=== PATIENT | female | born 1955 | race Caucasian/White ===

== ENCOUNTER 2017-04-22 08:36 | Day surgery (SDC) | payer BC ==
[2017-04-18 16:14] VITALS: BMI 32.6
[2017-04-22] MEDS ORDERED: ceFAZolin SODIUM 1 GM VIAL ONE (09:28)
[2017-04-22] MEDS ORDERED: ONDANSETRON 4 MG/2 ML VIAL IVPUSH PRN ×2 (10:31→12:52)
[2017-04-22] MEDS ORDERED: PROMETHAZINE HCL 25 MG/1 ML VIAL IVPUSH PRN ×2 (10:31→12:52)
[2017-04-22] MEDS ORDERED: oxyCODONE HCL 5 MG TABLET PO PRN ×2 (10:31→12:52)
[2017-04-22] MEDS ORDERED: LACTATED RINGERS SOLUTION 1,000 ML IV SCH ×2 (10:45→13:00)
[2017-04-22] MEDS ORDERED: MIDAZOLAM HCL 2 MG/2 ML SINGLE DOSE VIAL ONE ×3 (11:23→12:34)
--- NOTE | 2017-04-22 12:10 | HP ---
History & Physical Update - History History: No Change - Physical Physical: No Change - Assessment Assessment: No Change - Plan Plan: No Change
[2017-04-22] MEDS ORDERED: PROPOFOL 20 ML ONE (12:12)
[2017-04-22] MEDS ORDERED: LIDOCAINE 1%/EPI 1:100000 (20 ML MULTI DOSE VIAL) ONE (12:19)
[2017-04-22] MEDS ORDERED: ceFAZolin SODIUM 1 GM VIAL IVPB ONE (12:25)
[2017-04-22] MEDS ORDERED: LIDOCAINE 1%/EPI 1:100000 (20 ML MULTI DOSE VIAL) IJ ONE (12:29)
[2017-04-22 14:05] VITALS: TEMP 97.8
[2017-04-22 16:48] VITALS: BP 102/65; PULSE 73
--- NOTE | 2017-04-22 18:00 | OP ---
DATE OF OPERATION: 04/22/2017 PREOPERATIVE DIAGNOSIS: Cervical intraepithelial neoplasia three, and history of post menopausal vaginal bleeding. PROCEDURE: Cone biopsy of the cervix and dilation and curettage. SURGEON: Sandra Richard M.D. ANESTHESIA: MAC and local. ESTIMATED BLOOD LOSS: 10 mL. COMPLICATIONS: None. INDICATION: This is a 61-year-old 2 para 2 with history of CARMEN II. Pap smear on December 10, 2016, showed ASCUS, high-risk HPV positive. On March 27, 2017, ECC showed CARMEN II to III, cervical biopsy at 6, 9, 1, and 4 were negative. Patient had history of previous cone biopsy in 2011. Patient reports that she had history of menopause at age 58 and then after that had bleeding for 4 days one year later. She denied history of hormone replacement therapy. The plan was for her to have a D&C; however, that could not be done due to other medical issues. Patient was counseled regarding surgical management. Risks, benefits, and alternatives were discussed with the patient. All questions were answered. Informed consent was signed. FINDINGS: Exam under anesthesia, uterus approximately 6 to 8 weeks' size, cervix no gross lesions, vagina no lesions. Overall the vagina and cervix are markedly atrophic. Upon 5% acetic acid, there were no acetowhite epithelial changes. PROCEDURE: The patient was taken to the operating room, placed in dorsal supine position. Moderate sedation was achieved. She was placed in the dorsal lithotomy position and Stephan stirrups, and draped. A speculum was placed in the vagina, 5% acetic acid was applied to the entire cervix and the vagina, and a colposcopy was performed with the above-noted findings. At this point, 10 mL of 1% lidocaine with epinephrine was injected into the cervical stroma at 3, 6, 9 and 12 o'clock. After adequate anesthesia had been achieved, using a loop electrode, 2.0 x 0.8 cm loop, an anterior pass and a posterior pass was performed of the cervix. Using the 1.0 x 1.0 cm loop electrode, a top hat was performed of the endocervix. An endocervical curettage was then performed, and the cervix was gently dilated, and an endometrial curettage was performed as well. Endometrial curettage provided minimal tissue. The endometrial lining felt very smooth. All instruments were removed from the patient's vagina. Using the rollerball electrocautery, the entire LEEP bed was cauterized extensively with excellent hemostasis seen, and for added assurance a Monsel solution was applied. All instruments were removed from the patient's vagina. Sponge, needle, instrument counts were correct x2. Sandra Richard M.D. [id number]
--- NOTE | 2017-04-25 15:19 | PATH ---
Surgical Pathology Report Patient Name: CHRISTY PADILLA [facility], [place]. Rec. #: [id number] /Age/Gender: 1955 (Age: 61) / F Account: [id number] Location: [facility] SURGICAL Taken: 04/22/2017 Received: 04/22/2017 Reported: 04/25/2017 Physicians: Sandra Richard MD Specimen(s) Received A: ANTERIOR CERVICAL CONE B: POSTERIOR CERVICAL CONE C: TOP HAT CERVICAL CONE D: ENDOMETRIAL CURETTINGS E: ENDOCERVICAL CURETTINGS Clinical History Cervical dysplasia Final Diagnosis A. CERVIX, ANTERIOR, EXCISION: CERVICAL SQUAMOUS AND ENDOCERVICAL MUCOSA WITH ACUTE AND CHRONIC INFLAMMATION, FOCAL SQUAMOUS AND TUBAL METAPLASIA, AND CHANGES OF PRIOR PROCEDURE. TRANSFORMATION ZONE PRESENT. NO DYSPLASIA OR CARCINOMA IDENTIFIED. B. CERVIX, POSTERIOR, EXCISION: CERVICAL SQUAMOUS AND ENDOCERVICAL MUCOSA WITH FOCAL HIGH GRADE SQUAMOUS INTRAEPITHELIAL LESION (CERVICAL INTRAEPITHELIAL NEOPLASIA 2/CARMEN 2) IN A BACKGROUND OF LOW GRADE SQUAMOUS INTRAEPITHELIAL LESION. DYSPLASIA EXTENDS TO INKED SURGICAL MARGIN. TRANSFORMATION ZONE PRESENT. C. CERVIX, TOP HAT, EXCISION: ENDOCERVICAL MUCOSA WITH FOCAL GLANDULAR DYSPLASIA IN A BACKGROUND OF MILD CHRONIC INFLAMMATION AND FOCAL SQUAMOUS METAPLASIA. DYSPLASIA FOCALLY EXTENDS TO INKED SURGICAL MARGINS. SEE COMMENT. D. ENDOMETRIAL CURETTINGS, DILATATION AND CURETTAGE: ATROPHIC ENDOMETRIUM AND BENIGN ENDOCERVICAL TISSUE E. ENDOCERVICAL CURETTINGS, DILATATION AND CURETTAGE: SCANT FRAGMENTS OF BENIGN ENDOCERVICAL TISSUE. Comment: Immunohistochemical stains performed at [place], [place] ([id number] and [id number]) and interpreted at [facility] show the p16 shows strong patchy positive staining within the atypical glands. Proliferative marker, ki-67 was utilized to evaluate this case. Electronically Signed Nia Call M.D. Gross Description A. Received in formalin labeled "anterior cervix," is a 2.5 x 1.0 x 0.6 cm crescent shaped portion of cervix. The specimen is partially surfaced by a blackmon-pink, shiny and glistening mucosa. The specimen is inked blue, serially sectioned and entirely submitted in 3 cassettes. B. Received in formalin labeled "posterior cervix," is a 2.0 x 0.9 x 0.4 cm crescent shaped portion of cervix. The specimen is partially surfaced by a blackmon-pink, shiny and glistening mucosa. The specimen is inked blue, serially sectioned and entirely and sequentially submitted in 2 cassettes. C. Received in formalin labeled "top hat cervix," is a 3.0 x 0.7 x 0.4 cm irregular, unoriented portion of soft tissue, consistent with a portion of cervix. The specimen is inked blue, serially sectioned and entirely and sequentially submitted in 3 cassettes. D. Received in formalin labeled "endometrial curettage," is a 1.0 x 0.7 x 0.3 cm aggregate of blackmon soft tissue fragments admixed with mucus. The formalin is filtered and the specimen is entirely submitted in one cassette. E. Received in formalin labeled "endocervical curettings," is a 0.6 x 0.5 x 0.2 cm aggregate of blackmon-brown soft tissue fragments. The formalin is filtered and the specimen is entirely submitted in one cassette. 04/22/2017 [facility]04/22/2017
== END 2017-04-22 15:30 | disposition home or self-care (01) ==
LOC: JASU-SURG 08:36
PROVIDERS: ATTEND Obstetrics & Gynecology Gynecologic Oncology
PROC: 0UDB7ZX Extraction of Endometrium, Via Natural or Artificial Opening, Diagnostic (ICD-10-PCS; 2017-04-22)
PROC: 0UDB7ZX Extraction of Endometrium, Via Natural or Artificial Opening, Diagnostic (ICD-10-PCS; principal; 2017-04-22 10:00)
PROC: 0UBC7ZX Excision of Cervix, Via Natural or Artificial Opening, Diagnostic (ICD-10-PCS; 2017-04-22 10:00)
DX: N87.1 Moderate cervical dysplasia (principal); R87.810 Cervical high risk human papillomavirus (HPV) DNA test positive
CPT/HCPCS: 86850; 86900; 86901; 88305-TC; 88307-TC; 94760

== ENCOUNTER 2017-08-20 05:09 | Day surgery (SDC) | payer BC ==
[2017-08-18 13:16] VITALS: BMI 30.4
--- NOTE | 2017-08-20 09:24 | HP ---
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) Cardiovascular: Yes: HTN, Hyperlipdemia Gastrointestinal: Yes: Other (Hepatitis B carrier) Hepatobiliary: Yes: Hepatitis B ...LMP: 04/24/11 Infectious Disease: Yes: Other (Hepatitis B carrier) - Current Medications Current Medications: Home Medications Medication Instructions Recorded Cholecalciferol (Vitamin D3) 5,000 unit PO DAILY tab 03/25/16 [Vitamin D3 -] Docusate Sodium [Colace -] 100 mg PO DAILY capsule 03/25/16 Multivitamins [Multivit ([facility] 1 tab PO DAILY tab 03/25/16 Formulary)] Ascorbate Calcium [Vitamin C] 500 mg PO DAILY 04/18/17 Benazepril HCl [Lotensin] 20 mg PO DAILY 04/18/17 Hydrocodone/Acetaminophen [[place] 1 each PO Q6H PRN #40 tablet MDD 4 08/20/17 5-325 Tablet] Satellite Physical Exam - Physical Examination General Appearance: Well Nourished, Well Developed, Alert & Oriented x3 ENT: Clear Lung: Normal air movement Heart: Regular rate & rhythm Extremities: Other (left hand- + ttp over basal joint, decr rom, nvi xrays show grade 4 basal joint OA) Neurological: Intact, Alert, Oriented Satellite Impression/Plan - Impression/Plan Impression: left basal joint OA Operative Procedure: left basal joint arthroplasty Date to be Performed: 08/20/17
[2017-08-20] MEDS ORDERED: ONDANSETRON 4 MG/2 ML VIAL IVPUSH PRN (11:04)
[2017-08-20] MEDS ORDERED: LACTATED RINGERS SOLUTION 1,000 ML IV SCH (11:15)
[2017-08-20] MEDS ORDERED: ROPIVACAINE HCL 0.5% 30ML VIAL ONE (11:32)
[2017-08-20] MEDS ORDERED: DEXAMETHASONE SOD PHOSPHATE/PF 10 MG/ML SDV ONE (11:32)
[2017-08-20] MEDS ORDERED: MIDAZOLAM HCL 2 MG/2 ML SINGLE DOSE VIAL ONE ×2 (11:33)
[2017-08-20] MEDS ORDERED: ceFAZolin SODIUM 1 GM VIAL IVPB ONE (13:44)
[2017-08-20] MEDS ORDERED: LIDOCAINE HCL 1%, 10 MG/ML (20ML VIAL) ONE (13:53)
[2017-08-20] MEDS ORDERED: BUPIVACAINE HCL/PF 0.5% (5MG/ML) 10 ML VIAL ONE (13:53)
[2017-08-20] MEDS ORDERED: BUPIVACAINE HCL/PF 0.5% (5MG/ML) 10 ML VIAL IJ ONE ×2 (13:56)
[2017-08-20] MEDS ORDERED: LIDOCAINE HCL 1%, 10 MG/ML (50 mL VIAL) IJ ONE ×2 (13:56)
--- NOTE | 2017-08-20 15:14 | OP ---
Operative Note - Note: Operative Date: 08/20/17 ([facility]) Pre-Operative Diagnosis: left basal joint OA Operation: left basal joint arthroplasty, LRTI, tendon harvest Post-Operative Diagnosis: Same as Pre-op Surgeon: Jeff Samuel Shipping And Receiving Supervisor: Raymond Khan Anesthesiologist/SOFTWARE QUALITY SPECIALIST: Vinayak France Anesthesia: General, Local Specimens Removed: trapezium Estimated Blood Loss (mls): 0 (tourniquet) Operative Report Dictated: Yes
[2017-08-20 17:15] VITALS: TEMP 98.1
--- NOTE | 2017-08-20 18:51 | SPEC ---
DATE OF OPERATION: 08/20/2017 PREOPERATIVE DIAGNOSIS: Left basal joint arthritis. POSTOPERATIVE DIAGNOSIS: Left basal joint arthritis. PROCEDURE: PREOPERATIVE DIAGNOSIS: Left basal joint arthroplasty, trapezium excision, flexor carpi radialis tendon harvest, and ligament reconstruction with percutaneous first to second metacarpal. SURGEON: Jeff Samuel M.D. GOLF COURSE MECHANIC: Brown Lawrence NURSE TUMBLING MACHINE OPERATOR: , SURGICAL SCHEDULER ANESTHESIA: Left interscalene block with local injection of 12 mL 0.5% Marcaine, 1% lidocaine mix. DRAINS: None. COMPLICATIONS: None. SPECIMEN: Trapezium bone left wrist. BLOOD LOSS: None. BLOOD GIVEN: None. FLUID REPLACEMENT: 700 mL. INDICATION: This patient is a 61-year-old female with preoperative diagnosis of severe left basal joint arthritis. After understanding the potential risks, complications, alternatives, benefits to surgery versus nonsurgical treatment, the patient elected to pursue this procedure. DESCRIPTION OF PROCEDURE: Patient brought to operating room, peripheral IV placed, IV sedation given, 1 g of IV Ancef was given, LMA anesthesia was induced. After a left interscalene block was performed. The left upper extremity was prepped and draped in sterile fashion. A 3.0 loupe magnification was used throughout the entire case. A small lazy-S incision was marked out over the left basal joint. In addition, three small transverse stab incisions were marked out with a marking pen for later harvesting of the FCR tendon. A mix of 20 mL 0.5% Marcaine and 1% Lidocaine was injected in and around the surgical incisions. The left upper extremity was then elevated and exsanguinated with an Esmarch bandage and the tourniquet inflated to 250 mm Mercury. The case was begun by using a No. 15 scalpel blade to make a lazy-S incision over the left basal joint. Subcutaneous hemostasis was achieved with a bipolar cautery. Crossing neurovascular structures were visualized, mobilized and retracted. The hypertrophic capsule of the left basal joint was incised longitudinally with first a No. 15 scalpel blade. A small periosteal dissection done and 2-0 silk retracting sutures were placed into both dorsal and volar flap, retracting the hypertrophic capsule, exposing the first carpometacarpal joint. A rongeur was used to remove synovitis and a 0.62 K-wire placed into the trapezium. X-rays were taken to document that indeed this was the correct bone. Next, circumferential dissection was done with a No. 15 scalpel blade. An osteotome was used to remove the trapezium in its entirety. A rongeur was used to remove some small pieces of debris. The trapezium was passed off the field as specimen. Once the trapeziectomy was completed the area was irrigated and washed out and x-rays were taken documenting that the entire trapezium and osteophytes were removed. Next our attention turned to harvesting the flexor carpi radialis tendon. Three small stab incisions were made with a No. 15 scalpel blade. Subcutaneous hemostasis achieved with a bipolar cautery to try to keep the incisions as small as possible. A Littler scissor as well as a Byers elevator were used to free up the FCR tendon from its surrounding tendon sheath. Next turning our attention to the most proximal of these stab wounds, first a No. 15 scalpel blade was utilized to transversely cut the entire FCR tendon. It was then passed through each sequential more distal incision with a mosquito forceps, then using another mosquito to pass it through the first carpometacarpal joint incision. The proximal stab wounds were irrigated, washed out and closure done with some 4-0 undyed Vicryl in the subdermal layer and final skin re-approximation done with the 4-0 subcuticular Biosyn stitch and Steri-Strips. Next all excessive muscle was removed off the FCR tendon with a No. 15 scalpel blade. It was then cut in half, leaving its distal insertion. I then used a small oval bur to make a hole in the left thumb metacarpal from a dorsal radial position, down to where the volar oblique ligament usually inserts. A 3-0 nylon suture was placed into the distal aspect of the dorsal most FCR tendon half and a suture passer was placed through the base of the metacarpal and grabbed the nylon sutures and passed the FCR tendon through the base of the thumb metacarpal. Next, using a 0.062 K-wire and putting the thumb in the position of abduction and slight extension as well as pulling the longitudinal traction to maintain the trapezial space, I put the 0.062 K-wire across the base of the thumb metacarpal. X-rays were taken documenting excellent maintenance of the trapezial space and position of the hardware as well as the thumb metacarpal. Next, the FCR tendon was wrapped around, was tightened, brought around the base of the thumb metacarpal articular surface and tied to itself using 4-0 undyed Vicryl. The extra FCR tendon was then sutured to the other half of the FCR tendon using 4-0 undyed Vicryl with a slip stitch fashion and I made an anchovy which was placed into the trapezial space. This was sutured with 4-0 undyed Vicryl both to the ligament reconstruction as well as to the first CMC joint capsule. It all came together quite nicely. The area was irrigated and washed out and closure begun. The capsule was closed with 4-0 undyed Vicryl which was further sutured to the anchovy interposition graft. Then the deep dermal layer closed with 4-0 undyed Vicryl, skin re-approximated with a running subcuticular 4-0 Monocryl stitch. The area was then covered with Steri-Strips. The patient had 2 K-wires which had been bent, cut, pin caps applied. The area was then washed and dried, covered with 4 x 4, fluffs to the fingers, Webril and a 5-inch Orthoglass thumb spica splint was applied and wrapped with a Yordan and Coban. The tourniquet was taken down after a total tourniquet time of 75 minutes. There were no complications during the case. There was no blood loss. The patient was brought to the ambulatory recovery room in stable condition. Glenys [id number]
[2017-08-20 18:52] VITALS: BP 128/66; PULSE 82
--- NOTE | 2017-08-22 13:10 | PATH ---
Surgical Pathology Report Patient Name: CHRISTY PADILLA Med. Rec. #: [id number] /Age/Gender: 1955 (Age: 61) / F Account: [id number] Location: [facility] Taken: 08/20/2017 Received: 08/21/2017 Reported: 08/22/2017 Physicians: Jeff Samuel M.D. Specimen(s) Received LEFT WRIST BONE Clinical History Arthritis Final Diagnosis BONE, LEFT WRIST, EXCISION: DEGENERATIVE JOINT DISEASE. Electronically Signed Grupo Hare M.D. Gross Description Received in formalin, labeled "left wrist bone" are multiple white-blackmon irregular portions of bone measuring 3 x 1.5 x 1 cm. in aggregate. [employer] Workflow Consultant sections are submitted in one cassette after brief decalcification. KANDY/08/21/2017 adria/08/21/2017
== END 2017-08-20 18:45 | disposition home or self-care (01) ==
LOC: JASU-SURG 05:09
PROVIDERS: ATTEND Orthopaedic Surgery
PROC: 0RUP07Z Supplement Left Wrist Joint with Autologous Tissue Substitute, Open Approach (ICD-10-PCS; principal; 2017-08-20 11:30)
DX: M19.032 Primary osteoarthritis, left wrist (principal); I10 Essential (primary) hypertension; E78.5 Hyperlipidemia, unspecified; B18.1 Chronic viral hepatitis B without delta-agent
CPT/HCPCS: 76000-TC-FY; 88304-TC; 88311-TC; 94760

== ENCOUNTER 2017-08-22 09:58 | Emergency (ER) | payer BC ==
[2017-08-22 10:04] VITALS: BMI 30.4
[2017-08-22] MEDS ORDERED: ACETAMINOPHEN 325 MG TABLET (FP) PO ONE (10:24)
[2017-08-22] MEDS ORDERED: ACETAMINOPHEN 325 MG TABLET (FP) ONE (10:26)
[2017-08-22 10:31] VITALS: BP 146/88; PULSE 90; TEMP 98.1
--- NOTE | 2017-08-22 10:31 | PDOC ---
History of Present Illness - General Chief Complaint: Pain Stated Complaint: LEFT ARM PAIN S/P SURGERY ON 08/20/17 Time Seen by Provider: 08/22/17 10:03 - History of Present Illness Initial Comments: 08/22/17 10:25 61 F with HTN and recent L basal joint arthroplasty 08/20 presenting to ED with throbbing pain in L arm. Pt states that she feels like her dressing is too tight. Denies any numbness or weakness in her fingers. Denies any new redness or swelling. Denies F/C. Pt states that she called Dr. Samuel, who suggested cutting along the side of the dressing to relieve pressure. However, she did not feel comfortable doing this alone, so she came to ED. Past History - Past Medical History Allergies/Adverse Reactions: Allergies Allergy/AdvReac Type Severity Reaction Status Date / Time ibuprofen Allergy Severe Difficulty Verified 08/22/17 10:00 Breathing Home Medications: Ambulatory Orders Cholecalciferol (Vitamin D3) [Vitamin D3 -] 5,000 unit PO DAILY tab 03/25/16 Docusate Sodium [Colace -] 100 mg PO DAILY capsule 03/25/16 Multivitamins [Multivit ([facility] Formulary)] 1 tab PO DAILY tab 03/25/16 Ascorbate Calcium [Vitamin C] 500 mg PO DAILY 04/18/17 Benazepril HCl [Lotensin] 20 mg PO DAILY 04/18/17 Hydrocodone/Acetaminophen [[place] 5-325 Tablet] 1 each PO Q6H PRN #40 tablet MDD 4 08/20/17 Anemia: Yes Asthma: No Cancer: No Cardiac Disorders: No CVA: No COPD: No CHF: No Dementia: No Diabetes: No GI Disorders: No Disorders: No HTN: Yes Hypercholesterolemia: No 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) Seizures: No Thyroid Disease: No - Surgical History Abdominal Surgery: No Appendectomy: No Cardiac Surgery: No Cholecystectomy: No Lung Surgery: No Neurologic Surgery: Yes (SPINAL FUSION 02/2016;cervical 10/2015) Orthopedic Surgery: Yes (l knee surgery) - Immunization History Immunization Up to Date: Yes - Suicide/Smoking/Psychosocial Hx Smoking Status: No Smoking History: Former smoker Have you smoked in the past 12 months: No Number of Cigarettes Smoked Daily: 0 If you are a former smoker, when did you quit?: 2010 Information on smoking cessation initiated: No Hx Alcohol Use: No Drug/Substance Use Hx: No Substance Use Type: None Hx Substance Use Treatment: No Review of Systems - Review of Systems Comments:: 08/22/17 10:28 "GENERAL/CONSTITUTIONAL: No fever or chills. No weakness. HEAD, EYES, EARS, NOSE AND THROAT: No change in vision. No ear pain or discharge. No sore throat. CARDIOVASCULAR: No chest pain or shortness of breath. RESPIRATORY: No cough, wheezing, or hemoptysis. GASTROINTESTINAL: No nausea, vomiting, diarrhea or constipation. GENITOURINARY: No dysuria, frequency, or change in urination. MUSCULOSKELETAL: + L forearm pain SKIN: No rash NEUROLOGIC: No headache, vertigo, loss of consciousness, or change in strength/ sensation. ENDOCRINE: No increased thirst. No abnormal weight change. HEMATOLOGIC/LYMPHATIC: No anemia, easy bleeding, or history of blood clots. ALLERGIC/IMMUNOLOGIC: No hives or skin allergy. " *Physical Exam - Vital Signs Last Vital Signs Temp Pulse Resp BP Pulse Ox 0/0 08/22/17 09:59 - Physical Exam Comments: 08/22/17 10:28 "GENERAL: Awake, alert, and fully oriented, in no acute distress HEAD: No signs of trauma EYES: PERRLA, EOMI, sclera anicteric, conjunctiva clear ENT: Auricles normal inspection, hearing grossly normal, nares patent, oropharynx clear without exudates. Moist mucosa NECK: Nontender, no stepoffs, Normal ROM, supple, no lymphadenopathy, JVD, or masses LUNGS: Breath sounds equal, clear to auscultation bilaterally. No wheezes, and no crackles HEART: Regular rate and rhythm, normal S1 and S2, no murmurs, rubs or gallops ABDOMEN: Soft, nontender, normoactive bowel sounds. No guarding, no rebound. No masses EXTREMITIES: + L forearm and hand in splint, sensation intact to light touch in all fingers, ROM in DIP and PIP intact in digits 2-5, good cap refill NEUROLOGICAL: Cranial nerves II through XII intact. 5/5 strength and sensation in all extremities, Normal speech, normal gait, normal cerebellar function SKIN: Warm, Dry, normal turgor, no rashes or lesions noted. " Medical Decision Making - Medical Decision Making 08/22/17 10:29 61 F with recent L basal joint arthroplasty presents with pain in her L wrist. No evidence of infection on exam. Pt with good perfusion, neurovascularly intact , and soft compartments. Pt's discomfort likely 2/2 dressing being too tight. - Outer elastic bandage removed, with significant relief of pain - Splint left in place - MARITA bandage applied to around splint Pt is well appearing, with normal vitals. Clinically stable for DC at this time. I discussed the physical exam findings, ancillary test results and final diagnoses with the patient. I answered all of the patient's questions. The patient was satisfied with the care received and felt comfortable with the discharge plan and treatment plan. The patient agrees to follow up with the primary care physician within 24-72 hours. *DC/Admit/Observation/Transfer Diagnosis at time of Disposition: Post-op pain - Discharge Dispostion Disposition: HOME Condition at time of disposition: Stable - Referrals - Patient Instructions Printed Discharge Instructions: How to Take Care of Your Splint Additional Instructions: Follow up with Dr. Samuel on Friday. If you experience worsening pain, swelling, numbness, weakness, fevers, or any other concerning symptoms, return to the ER immediately. - Post Discharge Activity - Attestations Physician Attestion: 08/22/17 10:32 I, Dr. Leandro Sin MD, attest that this document has been prepared under my direction and personally reviewed by me in its entirety. I further attest, that it accurately reflects all work, treatment, procedures and medical decision -making performed by me.
== END 2017-08-22 10:42 | disposition home or self-care (01) ==
LOC: FER 09:58
DX: G89.18 Other acute postprocedural pain (principal); I10 Essential (primary) hypertension; D64.9 Anemia, unspecified; B18.1 Chronic viral hepatitis B without delta-agent; Z98.1 Arthrodesis status; Z87.891 Personal history of nicotine dependence
CPT/HCPCS: 99282-25

== ENCOUNTER 2018-04-27 15:38 | Emergency (ER) | payer OTHER, BC ==
[2018-04-27 15:52] VITALS: BP 168/87; PULSE 88; TEMP 98.6; BMI 32.6
--- NOTE | 2018-04-27 15:52 | PDOC ---
Rapid Medical Evaluation Chief Complaint: Injury Time Seen by Provider: 04/27/18 15:48 Medical Evaluation: Allergies Allergy/AdvReac Type Severity Reaction Status Date / Time ibuprofen Allergy Severe Difficulty Verified 04/27/18 15:47 Breathing 04/27/18 15:48 I have performed a brief in-person evaluation of this patient. The patient presents with a chief complaint of:tripped and fall with c/o bilateral knees , low back- Hx of Lumbar and Cervical disc surgeries Pertinent physical exam findings:walsk with limp I have ordered the following: lumbar spine Xray/ hand Xray The patient will proceed to the ED for further evaluation. 04/27/18 15:51 Discharge Disposition - Diagnosis Multiple contusions - Referrals - Patient Instructions - Post Discharge Activity
--- NOTE | 2018-04-27 17:03 | PDOC ---
History of Present Illness - General Chief Complaint: Injury Stated Complaint: EMPLOYEE, INJURY Time Seen by Provider: 04/27/18 15:48 History Source: Patient Exam Limitations: Clinical Condition - History of Present Illness Initial Comments: 04/27/18 17:05 Patient with history of chronic back pain present with complaint of mild pain to lower back, bilateral anterior knees in right wrist status post slip and fall on outstretched hand this afternoon while walking to her car. Patient denies hitting head or loss of consciousness. Patient reports she brace herself with right hand from the fall Timing/Duration: 1-3 hours Past History - Past Medical History Allergies/Adverse Reactions: Allergies Allergy/AdvReac Type Severity Reaction Status Date / Time ibuprofen Allergy Severe Difficulty Verified 04/27/18 15:47 Breathing Home Medications: Ambulatory Orders Cholecalciferol (Vitamin D3) [Vitamin D3 -] 5,000 unit PO DAILY tab 03/25/16 Multivitamins [Multivit ([facility])] 1 tab PO DAILY tab 03/25/16 Ascorbate Calcium [Vitamin C] 500 mg PO DAILY 04/18/17 Benazepril HCl [Lotensin] 20 mg PO DAILY 04/18/17 Diclofenac Sodium [Voltaren] 1 applic TP BID PRN #1 tube 04/27/18 Methocarbamol [Robaxin -] 500 mg PO BID PRN #14 tablet 04/27/18 Anemia: Yes Asthma: No Cancer: No Cardiac Disorders: No CVA: No COPD: No CHF: No Dementia: No Diabetes: No GI Disorders: No Disorders: No HTN: Yes Hypercholesterolemia: No 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) Seizures: No Thyroid Disease: No Other medical history: arthritis - Surgical History Abdominal Surgery: No Appendectomy: No Cardiac Surgery: No Cholecystectomy: No Lung Surgery: No Neurologic Surgery: Yes (SPINAL FUSION 02/2016;cervical 10/2015) Orthopedic Surgery: Yes (l knee surgery) - Immunization History Immunization Up to Date: Yes - Suicide/Smoking/Psychosocial Hx Smoking Status: No Smoking History: Never smoked Have you smoked in the past 12 months: No Number of Cigarettes Smoked Daily: 0 If you are a former smoker, when did you quit?: 2010 Information on smoking cessation initiated: No Hx Alcohol Use: No Drug/Substance Use Hx: No Substance Use Type: None Hx Substance Use Treatment: No Review of Systems - Review of Systems Able to Perform ROS?: Yes Is the patient limited Slovenian proficient: No Constitutional: No: Weakness HEENTM: No: Blurred Vision, Recent change in vision, Double Vision Respiratory: No: Symptoms reported Cardiac (ROS): No: Symptoms Reported ABD/GI: No: Symptoms Reported, Nausea, Vomiting Musculoskeletal: Yes: See HPI, Back Pain (lower back), Joint Pain (right wrist and hand), Muscle Pain (b/l anterior knee) Neurological: No: Numbness, Tingling, Dizziness All Other Systems: Reviewed and Negative *Physical Exam - Vital Signs Last Vital Signs Temp Pulse Resp BP Pulse Ox 98.6 F 88 18 168/87 97 04/27/18 15:47 04/27/18 15:47 04/27/18 15:47 04/27/18 15:47 04/27/18 15:47 - Physical Exam Comments: 04/27/18 17:08 GENERAL: Well developed, well nourished. Awake and alert. No acute distress. CARDIOVASCULAR: Regular rate and rhythm. No murmurs, rubs, or gallops. PULMONARY: No evidence of respiratory distress. Lungs clear to auscultation bilaterally. No wheezing, rales or rhonchi. ABDOMINAL: Soft. Non-tender. Non-distended. No rebound or guarding. No organomegaly. Normoactive bowel sounds MUSCULOSKELETAL : mild tenderness lower paravertebral muscle of lumbar spine spine. moderate tenderness to radial side of right wrist with mild superficial bruising to radial side of right hand on palmar side. mild tenderness to anterior b/l knees. mild swelling to lateral side of right knee with mild bruising over right patella. No bony deformities EXTREMITIES: No cyanosis. No clubbing. No edema. No calf tenderness. SKIN: Warm and dry. Normal capillary refill. No rashes. No jaundice. NEUROLOGICAL: Alert, awake, appropriate. No motor deficits in the lower extremities. Gait is normal without ataxia. PSYCHIATRIC: Cooperative. Good eye contact. Appropriate mood and affect. General Appearance: Yes: Nourished, Appropriately Dressed. No: Apparent Distress Moderate Sedation - Procedure Monitoring Vital Signs: Procedure Monitoring Vital Signs Temperature 98.6 F 04/27/18 15:47 Pulse Rate 88 04/27/18 15:47 Respiratory Rate 18 04/27/18 15:47 Blood Pressure 168/87 04/27/18 15:47 O2 Sat by Pulse Oximetry (%) 97 04/27/18 15:47 Medical Decision Making - Medical Decision Making 04/27/18 17:12 Patient with no significant past medication present with complaint of mild lower back pain, pain to right wrist and anterior bilateral knees status post slip and fall. Exam significant for mild pain to the lumbar area and bilateral anterior patellar with mild swelling to right lateral patellar. Examshows mild swelling to radial aspect of right weeks. X-ray of lumbar spine and right wrist shows no acute fracture dislocation. Patient is stable for discharge with muscle relaxer and Tylenol given adverse reaction to Motrin. Patient advice on heat therapy to pain area. Referral to orthopedist given to patient *DC/Admit/Observation/Transfer Diagnosis at time of Disposition: Multiple contusions Right wrist sprain Qualifiers: Encounter type: initial encounter Qualified Code(s): S63.501A - Unspecified sprain of right wrist, initial encounter Lumbago Qualifiers: Chronicity: acute Back pain laterality: bilateral Sciatica presence: without sciatica Qualified Code(s): M54.5 - Low back pain Knee contusion Qualifiers: Encounter type: initial encounter Laterality: unspecified laterality Qualified Code(s): S80.00XA - Contusion of unspecified knee, initial encounter - Discharge Dispostion Disposition: HOME Condition at time of disposition: Stable Decision to Admit order: No - Prescriptions Prescriptions: Diclofenac Sodium [Voltaren] 1 applic TP BID PRN #1 tube PRN Reason: pain Methocarbamol [Robaxin -] 500 mg PO BID PRN #14 tablet PRN Reason: Back Pain - Referrals Referrals: Jay Dempsey MD [Staff Physician] - - Patient Instructions Additional Instructions: take tylenol as needed for pain. use prescribed topical cream and muscle relaxer only as needed. apply heat to pain area 2-3times/day for 5-10mins - Post Discharge Activity
== END 2018-04-27 17:04 | disposition home or self-care (01) ==
LOC: JERFT 15:38
DX: M54.5 Low back pain (principal); S80.00XA Contusion of unspecified knee, initial encounter; S63.501A Unspecified sprain of right wrist, initial encounter; W18.39XA Other fall on same level, initial encounter; Y93.89 Activity, other specified; Y92.238 Other place in hospital as the place of occurrence of the external cause; Y99.0 Civilian activity done for income or pay; E78.00 Pure hypercholesterolemia, unspecified; B18.1 Chronic viral hepatitis B without delta-agent; M19.90 Unspecified osteoarthritis, unspecified site; Z87.891 Personal history of nicotine dependence
CPT/HCPCS: 72100-TC-FY; 73130-TC-RT-FY; 99281-25

== ENCOUNTER 2020-06-20 17:21 | Inpatient (IN) | payer BC ==
[2020-06-20 17:29] VITALS: BMI 31.9
[2020-06-20] MEDS ORDERED: DEXAMETHASONE SOD PHOSPHATE 10 MG/1 ML VIAL IVPUSH ONE (18:30)
[2020-06-20] MEDS ORDERED: DEXAMETHASONE SOD PHOSPHATE 10 MG/1 ML VIAL ONE (18:35)
[2020-06-20] MEDS ORDERED: LACTATED RINGERS SOLUTION 1000 ML INFUS.BAG IV ONE (19:00)
[2020-06-20] MEDS ORDERED: LORazepam 2 MG/ML SDV VIAL IVPUSH ONE (19:02)
[2020-06-20] MEDS ORDERED: LORazepam 2 MG/ML SDV VIAL ONE (19:05)
[2020-06-20 19:13] LABS: BASO % 0.5 % (0-2.0); EOS % 3.9 % (0-4.5); HEMOGLOBIN 13.7 GM/dL (10.7-15.3); LYMPH % 25.8 % (8-40); MCH 30.9 pg (25.7-33.7); MCHC 34.1 g/dl (32.0-36.0); MEAN CELL VOLUME 90.6 fl (80-96); MEAN PLT VOLUME 7.9 fl (7.5-11.1); MONO % 8.1 % (3.8-10.2); NEUT % 61.7 % (42.8-82.8); PLATELET COUNT 334 K/MM3 (134-434); RBC 4.42 M/mm3 (3.60-5.2); RDW 14.1 % (11.6-15.6); WHITE BLOOD COUNT 11.8 K/mm3 (4.0-10.0)
[2020-06-20 19:23] LABS: INR 1.04 (0.83-1.09); PROTHROMBIN TIME (PATIENT) 12.8 SEC (9.7-13.0)
[2020-06-20 19:26] LABS: ACTIVATED PTT 32.3 SECONDS (25.2-36.5)
[2020-06-20 19:32] LABS: CHLORIDE 104 mmol/L (98-107); POTASSIUM 4.1 mmol/L (3.5-5.1); SODIUM 138 mmol/L (136-145)
[2020-06-20 19:35] LABS: ALBUMIN 3.8 g/dl (3.4-5.0); ANION GAP 7 MMOL/L (8-16); CALCIUM 9.2 mg/dL (8.5-10.1); CO2 27 mmol/L (21-32)
[2020-06-20 19:36] LABS: BLOOD UREA NITROGEN 14.2 mg/dL (7-18); GLUCOSE,RANDOM 93 mg/dL (74-106)
[2020-06-20 19:38] LABS: SGOT/AST 39 U/L (15-37); SGPT/ALT 76 U/L (13-61)
[2020-06-20 19:39] LABS: CREATININE 0.8 mg/dL (0.55-1.3)
[2020-06-20 19:40] LABS: BILIRUBIN,TOTAL 0.8 mg/dL (0.2-1); TOT PROT 7.8 g/dl (6.4-8.2)
[2020-06-20 19:41] LABS: ALK PHOS 76 U/L (45-117)
[2020-06-20] MEDS ORDERED: DEXTROSE 5%-0.45% SALINE 1,000 ML IV SCH (22:15)
[2020-06-20 23:05] LABS: URINE APPEARANCE CLEAR; URINE BILIRUBIN NEGATIVE (NEGATIVE); URINE COLOR YELLOW; URINE GLUCOSE (UA) NEGATIVE (NEGATIVE); URINE KETONE NEGATIVE (NEGATIVE); URINE LEUK ESTERASE NEGATIVE (NEGATIVE); URINE NITRITE NEGATIVE (NEGATIVE); URINE PROTEIN NEGATIVE (NEGATIVE); URINE UROBILINOGEN 0.2 mg/dL (0.2-1.0)
[2020-06-21 07:05] LABS: HEMATOCRIT 39.9 % (32.4-45.2); HEMOGLOBIN 13.9 GM/dL (10.7-15.3); MCH 31.7 pg (25.7-33.7); MCHC 34.8 g/dl (32.0-36.0); MEAN CELL VOLUME 91.1 fl (80-96); PLATELET COUNT 305 K/MM3 (134-434); RBC 4.38 M/mm3 (3.60-5.2); RDW 13.7 % (11.6-15.6); WHITE BLOOD COUNT 14.1 K/mm3 (4.0-10.0)
[2020-06-21 07:10] LABS: INR 1.09 (0.83-1.09); PROTHROMBIN TIME (PATIENT) 13.4 SEC (9.7-13.0)
[2020-06-21 07:19] LABS: POTASSIUM 4.4 mmol/L (3.5-5.1)
[2020-06-21 07:25] LABS: BLOOD UREA NITROGEN 16.2 mg/dL (7-18)
[2020-06-21 07:26] LABS: CALCIUM 9.4 mg/dL (8.5-10.1); MAGNESIUM 2.3 mg/dL (1.8-2.4)
[2020-06-21 07:28] LABS: CREATININE 0.8 mg/dL (0.55-1.3)
[2020-06-21] MEDS ORDERED: BENAZEPRIL HCL 20 MG PO SCH (10:00)
[2020-06-21] MEDS: LISINOPRIL 20 MG TABLET PO SCH (10:37)
[2020-06-21] MEDS ORDERED: THROMBIN (BOVINE) 5,000 UNIT VIAL TP ONE (10:41)
[2020-06-21] MEDS ORDERED: PROPOFOL 20 ML ONE ×9 (11:08→14:07)
[2020-06-21] MEDS ORDERED: MIDAZOLAM HCL 2 MG/2 ML SINGLE DOSE VIAL ONE (11:08)
[2020-06-21] MEDS ORDERED: ROCURONIUM BROMIDE 50 MG/5 ML SYRINGE ONE (11:09)
[2020-06-21] MEDS ORDERED: VANCOMYCIN 1,000 MG VIAL (RESTRICTED TO ID ONLY) IVPB ONE (11:20)
[2020-06-21] MEDS ORDERED: ceFAZolin SODIUM 1 GM VIAL IVPB ONE (11:20)
[2020-06-21] MEDS ORDERED: LIDOCAINE HCL/PF 2% SDV 5ML VIAL ONE (11:34)
[2020-06-21] MEDS ORDERED: VANCOMYCIN 1,000 MG VIAL (RESTRICTED TO ID ONLY) ONE (12:03)
[2020-06-21] MEDS ORDERED: ceFAZolin SODIUM 1 GM VIAL ONE ×2 (12:03→18:06)
[2020-06-21] MEDS ORDERED: SODIUM CHLORIDE 0.9% P/F 10 ML VIAL IJ ONE (12:03)
[2020-06-21] MEDS ORDERED: ONDANSETRON 4 MG/2 ML VIAL ONE (12:20)
[2020-06-21] MEDS ORDERED: DEXAMETHASONE SOD PHOSPHATE 4 MG/1 ML VIAL ONE (12:20)
[2020-06-21] MEDS ORDERED: BACITRACIN 15 GM TUBE TOPICAL OINTMENT ONE (15:42)
[2020-06-21] MEDS ORDERED: ONDANSETRON 4 MG/2 ML VIAL IVPUSH PRN ×2 (16:03→16:18)
[2020-06-21] MEDS ORDERED: BISACODYL 10 MG SUPP.RECT RC PRN (16:03)
[2020-06-21] MEDS ORDERED: ACETAMINOPHEN 325 MG TABLET (FP) PO PRN (16:03)
[2020-06-21] MEDS ORDERED: D5-1/2NS+20 MEQ KCL - 20 MEQ/1,000 ML INFUS.BAG IV SCH (16:15)
[2020-06-21] MEDS ORDERED: BUPIVACAINE HCL/PF 0.5% (5 MG/ML) 30 ML VIAL IJ ONE (16:18)
[2020-06-21] MEDS ORDERED: LACTATED RINGERS SOLUTION 1,000 ML IV SCH (16:30)
[2020-06-21] MEDS: HYDROmorphone HCl 2 MG/ML VIAL IVPUSH PRN ×2 (16:31→16:41)
[2020-06-21] MEDS ORDERED: HYDROmorphone HCl 2 MG/ML VIAL ONE (16:31)
[2020-06-21] MEDS ORDERED: HYDROmorphone HCl 2 MG/ML VIAL IVPUSH PRN (16:34)
[2020-06-21] MEDS ORDERED: HYDROmorphone *PCA* 10MG/50ML DISP.SYRIN ONE (16:41)
[2020-06-21] MEDS: D5-1/2NS+20 MEQ KCL - 20 MEQ/1,000 ML INFUS.BAG IV SCH (16:52)
[2020-06-21] MEDS: HYDROmorphone *PCA* 10MG/50ML DISP.SYRIN PCA SCH (16:52)
[2020-06-21 17:50] LABS: HEMATOCRIT 33.7 % (32.4-45.2); HEMOGLOBIN 11.4 GM/dL (10.7-15.3); MCH 31.1 pg (25.7-33.7); MCHC 33.8 g/dl (32.0-36.0); MEAN PLT VOLUME 7.7 fl (7.5-11.1); PLATELET COUNT 284 K/MM3 (134-434); RBC 3.67 M/mm3 (3.60-5.2); WHITE BLOOD COUNT 20.3 K/mm3 (4.0-10.0)
[2020-06-21 18:06] LABS: POTASSIUM 4.6 mmol/L (3.5-5.1)
[2020-06-21 18:08] LABS: BLOOD UREA NITROGEN 18.5 mg/dL (7-18); CALCIUM 8.4 mg/dL (8.5-10.1)
[2020-06-21] MEDS: CEFAZOLIN 1 GM/D5W 1 GM/50 ML BAG IVPB SCH (18:11)
[2020-06-21 18:12] LABS: CREATININE 0.8 mg/dL (0.55-1.3)
[2020-06-21] MEDS: DOCUSATE SODIUM 100 MG CAPSULE (FP) PO SCH (23:38)
[2020-06-21] MEDS: diazePAM 5 MG TABLET PO SCH (23:38)
[2020-06-22] MEDS: CEFAZOLIN 1 GM/D5W 1 GM/50 ML BAG IVPB SCH ×2 (01:09→10:07)
[2020-06-22] MEDS: DOCUSATE SODIUM 100 MG CAPSULE (FP) PO SCH ×3 (06:52→22:08)
[2020-06-22] MEDS: diazePAM 5 MG TABLET PO SCH ×3 (06:53→22:07)
[2020-06-22 08:54] LABS: BASO % 0.1 % (0-2.0); EOS % 0.1 % (0-4.5); HEMATOCRIT 30.4 % (32.4-45.2); HEMOGLOBIN 10.3 GM/dL (10.7-15.3); LYMPH % 13.7 % (8-40); MCH 31.1 pg (25.7-33.7); MEAN CELL VOLUME 91.6 fl (80-96); MONO % 7.5 % (3.8-10.2); NEUT % 78.6 % (42.8-82.8); PLATELET COUNT 265 K/MM3 (134-434); RBC 3.32 M/mm3 (3.60-5.2); RDW 13.8 % (11.6-15.6); WHITE BLOOD COUNT 20.9 K/mm3 (4.0-10.0)
[2020-06-22 09:14] LABS: POTASSIUM 4.3 mmol/L (3.5-5.1)
[2020-06-22 09:19] LABS: ALBUMIN 2.9 g/dl (3.4-5.0); BLOOD UREA NITROGEN 17.4 mg/dL (7-18)
[2020-06-22 09:23] LABS: CREATININE 0.7 mg/dL (0.55-1.3)
[2020-06-22 09:24] LABS: BILIRUBIN,TOTAL 0.6 mg/dL (0.2-1); TOT PROT 5.9 g/dl (6.4-8.2)
[2020-06-22] MEDS: LISINOPRIL 20 MG TABLET PO SCH (10:07)
[2020-06-22 10:28] LABS: ANISOCYTOSIS 1+; MACROCYTOSIS 1+; OVALOCYTE 1+; PLATELET ESTIMATE NORMAL
[2020-06-22] MEDS ORDERED: ceFAZolin SODIUM 1 GM VIAL ONE (17:31)
[2020-06-22] MEDS ORDERED: DEXTROSE 5%-WATER - 50 ML IVPB ONE (17:31)
[2020-06-22] MEDS: CEFAZOLIN 1 GM in DEXTROSE 5%-WATER - 50 ML IVPB SCH (17:42)
[2020-06-22] MEDS: HYDROmorphone *PCA* 10MG/50ML DISP.SYRIN PCA SCH (19:01)
[2020-06-22] MEDS: D5-1/2NS+20 MEQ KCL - 20 MEQ/1,000 ML INFUS.BAG IV SCH (19:01)
[2020-06-23] MEDS ORDERED: DEXTROSE 5%-WATER - 50 ML IVPB ONE ×3 (00:55→17:40)
[2020-06-23] MEDS ORDERED: ceFAZolin SODIUM 1 GM VIAL ONE ×3 (00:55→17:40)
[2020-06-23] MEDS: CEFAZOLIN 1 GM in DEXTROSE 5%-WATER - 50 ML IVPB SCH ×3 (01:23→17:43)
[2020-06-23] MEDS: HYDROmorphone *PCA* 10MG/50ML DISP.SYRIN PCA SCH ×2 (02:22→16:22)
[2020-06-23] MEDS: DOCUSATE SODIUM 100 MG CAPSULE (FP) PO SCH ×3 (06:08→21:32)
[2020-06-23] MEDS: diazePAM 5 MG TABLET PO SCH ×3 (06:08→21:31)
[2020-06-23] MEDS: LISINOPRIL 20 MG TABLET PO SCH (09:14)
[2020-06-23 13:44] LABS: BASO % 0.4 % (0-2.0); EOS % 1.4 % (0-4.5); HEMATOCRIT 30.3 % (32.4-45.2); HEMOGLOBIN 10.6 GM/dL (10.7-15.3); LYMPH % 18.5 % (8-40); MCH 31.9 pg (25.7-33.7); MCHC 35.1 g/dl (32.0-36.0); MEAN CELL VOLUME 90.9 fl (80-96); MEAN PLT VOLUME 7.4 fl (7.5-11.1); MONO % 10.8 % (3.8-10.2); NEUT % 68.9 % (42.8-82.8); PLATELET COUNT 258 K/MM3 (134-434); RBC 3.34 M/mm3 (3.60-5.2); RDW 13.8 % (11.6-15.6); WHITE BLOOD COUNT 17.1 K/mm3 (4.0-10.0)
[2020-06-23 14:08] LABS: POTASSIUM 3.7 mmol/L (3.5-5.1)
[2020-06-23 14:11] LABS: MAGNESIUM 2.1 mg/dL (1.8-2.4)
[2020-06-23 14:14] LABS: CREATININE 0.8 mg/dL (0.55-1.3)
[2020-06-23 14:15] LABS: BILIRUBIN,TOTAL 0.5 mg/dL (0.2-1); TOT PROT 6.2 g/dl (6.4-8.2)
[2020-06-23] MEDS: D5-1/2NS+20 MEQ KCL - 20 MEQ/1,000 ML INFUS.BAG IV SCH (16:23)
[2020-06-23] MEDS: SENNOSIDES 8.6MG TABLET (FP) PO SCH (21:32)
[2020-06-24] MEDS ORDERED: ceFAZolin SODIUM 1 GM VIAL ONE ×3 (02:23→17:07)
[2020-06-24] MEDS ORDERED: DEXTROSE 5%-WATER - 50 ML IVPB ONE ×3 (02:24→17:07)
[2020-06-24] MEDS: CEFAZOLIN 1 GM in DEXTROSE 5%-WATER - 50 ML IVPB SCH ×3 (02:51→17:17)
[2020-06-24] MEDS: DOCUSATE SODIUM 100 MG CAPSULE (FP) PO SCH ×3 (06:28→21:36)
[2020-06-24] MEDS: diazePAM 5 MG TABLET PO SCH ×3 (06:28→21:37)
[2020-06-24 08:35] LABS: BASO % 0.3 % (0-2.0); EOS % 3.3 % (0-4.5); HEMATOCRIT 28.4 % (32.4-45.2); MCH 31.9 pg (25.7-33.7); MCHC 35.2 g/dl (32.0-36.0); MEAN CELL VOLUME 90.7 fl (80-96); MEAN PLT VOLUME 7.7 fl (7.5-11.1); NEUT % 70.4 % (42.8-82.8); PLATELET COUNT 248 K/MM3 (134-434); RBC 3.14 M/mm3 (3.60-5.2); RDW 13.4 % (11.6-15.6)
[2020-06-24 08:38] LABS: POTASSIUM 3.7 mmol/L (3.5-5.1)
[2020-06-24 08:40] LABS: ALBUMIN 2.7 g/dl (3.4-5.0); BLOOD UREA NITROGEN 15.3 mg/dL (7-18); MAGNESIUM 2.2 mg/dL (1.8-2.4)
[2020-06-24 08:43] LABS: CREATININE 0.7 mg/dL (0.55-1.3)
[2020-06-24 08:44] LABS: PHOSPHOROUS 2.8 mg/dL (2.5-4.9)
[2020-06-24 08:45] LABS: BILIRUBIN,TOTAL 0.7 mg/dL (0.2-1); TOT PROT 5.9 g/dl (6.4-8.2)
[2020-06-24] MEDS: LISINOPRIL 20 MG TABLET PO SCH (10:04)
[2020-06-24] MEDS ORDERED: POLYETHYLENE GLYCOL 3350 119 GM BTL PO ONE (12:43)
[2020-06-24] MEDS ORDERED: PCA PUMP NR ONE (15:08)
[2020-06-24] MEDS: oxyCODONE HCL 5 MG TABLET PO PRN ×2 (17:12→21:38)
[2020-06-24] MEDS: SENNOSIDES 8.6MG TABLET (FP) PO SCH (21:36)
[2020-06-25] MEDS ORDERED: DEXTROSE 5%-WATER - 50 ML IVPB ONE ×3 (02:12→17:27)
[2020-06-25] MEDS ORDERED: ceFAZolin SODIUM 1 GM VIAL ONE ×3 (02:12→17:27)
[2020-06-25] MEDS: CEFAZOLIN 1 GM in DEXTROSE 5%-WATER - 50 ML IVPB SCH ×3 (02:30→17:35)
[2020-06-25] MEDS: DOCUSATE SODIUM 100 MG CAPSULE (FP) PO SCH ×3 (06:18→21:42)
[2020-06-25] MEDS: diazePAM 5 MG TABLET PO SCH ×3 (06:19→21:42)
[2020-06-25] MEDS: oxyCODONE HCL 5 MG TABLET PO PRN ×3 (06:19→21:42)
[2020-06-25 09:28] LABS: BASO % 0.2 % (0-2.0); EOS % 3.8 % (0-4.5); HEMATOCRIT 28.4 % (32.4-45.2); LYMPH % 14.8 % (8-40); MCH 31.6 pg (25.7-33.7); MCHC 35.1 g/dl (32.0-36.0); MEAN PLT VOLUME 7.6 fl (7.5-11.1); MONO % 8.1 % (3.8-10.2); NEUT % 73.1 % (42.8-82.8); PLATELET COUNT 299 K/MM3 (134-434); RBC 3.15 M/mm3 (3.60-5.2); RDW 13.9 % (11.6-15.6); WHITE BLOOD COUNT 14.6 K/mm3 (4.0-10.0)
[2020-06-25 09:43] LABS: POTASSIUM 4.3 mmol/L (3.5-5.1)
[2020-06-25 09:55] LABS: BLOOD UREA NITROGEN 13.6 mg/dL (7-18)
[2020-06-25 09:56] LABS: CALCIUM 8.5 mg/dL (8.5-10.1)
[2020-06-25 09:57] LABS: PHOSPHOROUS 2.8 mg/dL (2.5-4.9)
[2020-06-25 09:58] LABS: MAGNESIUM 2.2 mg/dL (1.8-2.4)
[2020-06-25 10:01] LABS: CREATININE 0.7 mg/dL (0.55-1.3)
[2020-06-25] MEDS: LISINOPRIL 20 MG TABLET PO SCH (10:21)
[2020-06-25] MEDS ORDERED: BISACODYL 10 MG SUPP.RECT PR ONE (10:38)
[2020-06-25] MEDS: SENNOSIDES 8.6MG TABLET (FP) PO SCH (21:41)
[2020-06-26] MEDS ORDERED: DEXTROSE 5%-WATER - 50 ML IVPB ONE ×3 (00:43→18:04)
[2020-06-26] MEDS ORDERED: ceFAZolin SODIUM 1 GM VIAL ONE ×3 (00:43→18:03)
[2020-06-26] MEDS: CEFAZOLIN 1 GM in DEXTROSE 5%-WATER - 50 ML IVPB SCH ×3 (02:00→18:13)
[2020-06-26] MEDS: oxyCODONE HCL 5 MG TABLET PO PRN ×2 (03:15→14:34)
[2020-06-26] MEDS: diazePAM 5 MG TABLET PO SCH ×3 (06:08→22:28)
[2020-06-26] MEDS: DOCUSATE SODIUM 100 MG CAPSULE (FP) PO SCH ×3 (06:08→22:28)
[2020-06-26 08:40] LABS: BASO % 0.6 % (0-2.0); HEMATOCRIT 27.9 % (32.4-45.2); HEMOGLOBIN 9.6 GM/dL (10.7-15.3); LYMPH % 17.9 % (8-40); MCH 31.6 pg (25.7-33.7); MCHC 34.4 g/dl (32.0-36.0); MEAN CELL VOLUME 91.8 fl (80-96); MEAN PLT VOLUME 7.6 fl (7.5-11.1); MONO % 9.8 % (3.8-10.2); NEUT % 65.7 % (42.8-82.8); PLATELET COUNT 307 K/MM3 (134-434); RBC 3.04 M/mm3 (3.60-5.2); RDW 13.7 % (11.6-15.6)
[2020-06-26 08:56] LABS: POTASSIUM 4.3 mmol/L (3.5-5.1)
[2020-06-26 08:59] LABS: CALCIUM 8.6 mg/dL (8.5-10.1)
[2020-06-26 09:00] LABS: BLOOD UREA NITROGEN 14.1 mg/dL (7-18); MAGNESIUM 2.3 mg/dL (1.8-2.4)
[2020-06-26 09:03] LABS: CREATININE 0.6 mg/dL (0.55-1.3); PHOSPHOROUS 3.5 mg/dL (2.5-4.9)
[2020-06-26] MEDS: LISINOPRIL 20 MG TABLET PO SCH (10:11)
[2020-06-26] MEDS ORDERED: MAGNESIUM CITRATE 300 ML BOTTLE PO ONE (15:19)
[2020-06-26] MEDS: SENNOSIDES 8.6MG TABLET (FP) PO SCH (22:28)
[2020-06-27] MEDS ORDERED: DEXTROSE 5%-WATER - 50 ML IVPB ONE ×3 (02:09→17:22)
[2020-06-27] MEDS ORDERED: ceFAZolin SODIUM 1 GM VIAL ONE ×3 (02:09→17:21)
[2020-06-27] MEDS: CEFAZOLIN 1 GM in DEXTROSE 5%-WATER - 50 ML IVPB SCH ×3 (02:27→17:41)
[2020-06-27] MEDS: diazePAM 5 MG TABLET PO SCH ×3 (06:31→21:30)
[2020-06-27] MEDS: DOCUSATE SODIUM 100 MG CAPSULE (FP) PO SCH ×3 (06:32→21:33)
[2020-06-27] MEDS: oxyCODONE HCL 5 MG TABLET PO PRN ×2 (10:19→21:30)
[2020-06-27] MEDS: LISINOPRIL 20 MG TABLET PO SCH (10:19)
[2020-06-27 10:55] LABS: BASO % 0.7 % (0-2.0); HEMATOCRIT 28.8 % (32.4-45.2); HEMOGLOBIN 9.8 GM/dL (10.7-15.3); LYMPH % 13.6 % (8-40); MCH 31.4 pg (25.7-33.7); MEAN CELL VOLUME 92.3 fl (80-96); MEAN PLT VOLUME 7.6 fl (7.5-11.1); MONO % 7.3 % (3.8-10.2); NEUT % 72.4 % (42.8-82.8); PLATELET COUNT 355 K/MM3 (134-434); RBC 3.12 M/mm3 (3.60-5.2); RDW 13.6 % (11.6-15.6); WHITE BLOOD COUNT 10.1 K/mm3 (4.0-10.0)
[2020-06-27 11:17] LABS: POTASSIUM 4.5 mmol/L (3.5-5.1)
[2020-06-27 11:31] LABS: BLOOD UREA NITROGEN 12.7 mg/dL (7-18); CALCIUM 8.7 mg/dL (8.5-10.1)
[2020-06-27 11:33] LABS: MAGNESIUM 2.5 mg/dL (1.8-2.4)
[2020-06-27 11:35] LABS: CREATININE 0.7 mg/dL (0.55-1.3)
[2020-06-27 11:36] LABS: PHOSPHOROUS 3.5 mg/dL (2.5-4.9)
[2020-06-27] MEDS: SENNOSIDES 8.6MG TABLET (FP) PO SCH (21:30)
[2020-06-28] MEDS ORDERED: DEXTROSE 5%-WATER - 50 ML IVPB ONE ×2 (03:48→09:58)
[2020-06-28] MEDS ORDERED: ceFAZolin SODIUM 1 GM VIAL ONE ×2 (03:48→09:58)
[2020-06-28] MEDS: CEFAZOLIN 1 GM in DEXTROSE 5%-WATER - 50 ML IVPB SCH ×2 (03:52→10:01)
[2020-06-28] MEDS: oxyCODONE HCL 5 MG TABLET PO PRN (06:17)
[2020-06-28] MEDS: DOCUSATE SODIUM 100 MG CAPSULE (FP) PO SCH (06:17)
[2020-06-28] MEDS: diazePAM 5 MG TABLET PO SCH (06:17)
[2020-06-28] MEDS: LISINOPRIL 20 MG TABLET PO SCH (10:01)
[2020-06-28 13:28] VITALS: BP 122/70; PULSE 66; TEMP 98.3
== END 2020-06-28 14:28 | disposition home health service (06) | DRG 454 ==
LOC: JER 17:21 → JERBED 20:38 → J6S 06-21 20:00
PROVIDERS: ADMIT Hospitalist; ATTEND Student in an Organized Health Care Education/Training Program
PROC: 0SG1071 Fusion of 2 or more Lumbar Vertebral Joints with Autologous Tissue Substitute, Posterior Approach, Posterior Column, Open Approach (ICD-10-PCS; 2020-06-21)
PROC: 0SP00AZ Removal of Interbody Fusion Device from Lumbar Vertebral Joint, Open Approach (ICD-10-PCS; 2020-06-21)
PROC: 00NY0ZZ Release Lumbar Spinal Cord, Open Approach (ICD-10-PCS; 2020-06-21)
PROC: 0SB20ZZ Excision of Lumbar Vertebral Disc, Open Approach (ICD-10-PCS; 2020-06-21)
PROC: B01BZZZ Fluoroscopy of Spinal Cord (ICD-10-PCS; 2020-06-21)
PROC: 4A11X4G Monitoring of Peripheral Nervous Electrical Activity, Intraoperative, External Approach (ICD-10-PCS; 2020-06-21)
PROC: 0SG00AJ Fusion of Lumbar Vertebral Joint with Interbody Fusion Device, Posterior Approach, Anterior Column, Open Approach (ICD-10-PCS; principal; 2020-06-21 12:00)
DX: M48.062 Spinal stenosis, lumbar region with neurogenic claudication (principal); G83.4 Cauda equina syndrome; G45.0 Vertebro-basilar artery syndrome; R33.9 Retention of urine, unspecified; D72.829 Elevated white blood cell count, unspecified; K59.00 Constipation, unspecified; I10 Essential (primary) hypertension
CPT/HCPCS: 36415; 71045-TC-FY; 72100-TC-FY; 72158-TC; 76000-TC-FY; 80048; 80053; 81003; 83735; 84100; 84484; 85025; 85027; 85610; 85730; 86850; 86900; 86901; 87086; 88300-TC; 88304-TC; 93005; 93010; 94010; 94760; 97116-GP; 97162-GP; 99285-25; A9579; C9803; J1100; U0003

== ENCOUNTER 2022-08-01 04:20 | Day surgery (SDC) | payer BC ==
[2022-07-29 13:25] VITALS: BMI 34.7
[2022-08-01 10:15] VITALS: TEMP 97.2
[2022-08-01 10:33] VITALS: RESP 19
[2022-08-01 10:47] VITALS: BP 112/66; PULSE 63
== END 2022-08-01 11:20 | disposition home or self-care (01) ==
LOC: JASU-ENDO 04:20
PROVIDERS: ATTEND Internal Medicine Gastroenterology
PROC: 0D5L8ZZ Destruction of Transverse Colon, Via Natural or Artificial Opening Endoscopic (ICD-10-PCS; principal; 2022-08-01 10:00)
DX: Z12.11 Encounter for screening for malignant neoplasm of colon (principal); D12.3 Benign neoplasm of transverse colon; K64.8 Other hemorrhoids; K57.30 Diverticulosis of large intestine without perforation or abscess without bleeding
CPT/HCPCS: 88305-TC

== ENCOUNTER 2025-03-14 06:19 | Day surgery (SDC) | payer BC ==
[2025-03-09 16:37] VITALS: BMI 34.6
[2025-03-14] MEDS ORDERED: BUPIVACAINE HCL/PF 0.5% (5MG/ML) 10 ML VIAL ONE (07:26)
[2025-03-14] MEDS ORDERED: LIDOCAINE HCL 1%, 10 MG/ML (20ML VIAL) ONE (07:26)
[2025-03-14] MEDS ORDERED: MIDAZOLAM HCL 2 MG/2 ML SINGLE DOSE VIAL ONE (08:09)
[2025-03-14] MEDS ORDERED: PROPOFOL 20 ML ONE (08:09)
[2025-03-14] MEDS: LIDOCAINE HCL 1%, 10 MG/ML (20ML VIAL) INF ONE ×2 (08:52)
[2025-03-14] MEDS: BUPIVACAINE HCL/PF 0.5% (5 MG/ML) 30 ML VIAL IJ ONE ×3 (08:52)
[2025-03-14] MEDS ORDERED: DEXAMETHASONE SOD PHOSPHATE 4 MG/1 ML VIAL ONE (10:32)
[2025-03-14] MEDS ORDERED: ONDANSETRON 4 MG/2 ML VIAL ONE (10:32)
[2025-03-14] MEDS: ACETAMINOPHEN INJECTION 100 ML ONE (12:22)
[2025-03-14] MEDS: ACETAMINOPHEN 1000 MG/100 ML BAG IVPB PRN (12:22)
[2025-03-14] MEDS ORDERED: KETOROLAC TROMETHAMINE 30 MG/1 ML VIAL ONE (13:03)
[2025-03-14 13:05] VITALS: PULSE 80; TEMP 97.6
[2025-03-14] MEDS: KETOROLAC TROMETHAMINE 15 MG/ML VIAL IVPUSH ONE (13:07)
[2025-03-14] MEDS ORDERED: oxyCODONE HCL 10 MG SUSTAINED ACTING TABLET ONE (14:40)
[2025-03-14 16:34] VITALS: BP 129/75; RESP 20
== END 2025-03-14 16:53 | disposition home or self-care (01) ==
LOC: JASU-SURG 06:19
PROVIDERS: ATTEND Orthopaedic Surgery
PROC: 0RRS0JZ Replacement of Right Carpometacarpal Joint with Synthetic Substitute, Open Approach (ICD-10-PCS; principal; 2025-03-14 08:00)
DX: M18.11 Unilateral primary osteoarthritis of first carpometacarpal joint, right hand (principal)
CPT/HCPCS: 88304-TC; 88311-TC; 94760